=== PATIENT | female | born 1950 | race Hispanic/Latino ===

== ENCOUNTER → 2017-05-14 | Outpatient (CLI) | payer OTHER ==
[~2017-05-14] MED LIST: CEPHALEXIN500 MG PO; FENOFIBRATE145 MG PO; KEFLEX500 MG PO; LEVAQUIN500 MG PO; LISINOPRIL10 MG PO; MELATONIN3 MG PO; NIFEDIPINE PO; OXYBUTYNIN CHLOR5 MG PO; PANTOPRAZOLE SO40 MG PO; TYLENOL WITH C1 EACH PO; Z SULFAMETHOXAZO PO; Z.0.CIPRO500 MG PO; Z.0.COLACE50 MG PO; Z.0.MEVACOR40 MG PO; Z.0.NEXIUM40 MG PO; Z.1.LISINOPRIL-HCT1 PO; Z.1.NITROFURANTOIN10 PO; [UNRECOGNIZED DRUG - OTHER] PO
[2017-05-14 10:56] LABS: BASOPHILS # (AUTO) 0.1 (0.0-0.1); BASOPHILS % 1.1 % (0.0-1.0); EOSINOPHILS # (AUTO) 0.3 (0.0-0.4); EOSINOPHILS % 4.1 % (0.0-6.0); HEMATOCRIT 33.9 % (34.2-44.1); HEMOGLOBIN 11.1 g/dL (12.0-16.0); LYMPHOCYTES # (AUTO) 3.1 (1.0-3.2); MEAN CORPUSCULAR HEMOGLOBIN 29.1 pg (28-32); MEAN CORPUSCULAR HGB CONC 32.7 g/dL (31-35); MONOCYTES # (AUTO) 0.5 (0.2-0.8); MONOCYTES % 5.7 % (4.4-11.3); NEUTROPHILS # (AUTO) 4.3 (2.1-6.9); PLATELET COUNT 465 x10e3/uL (140-360); RED BLOOD COUNT 3.81 x10e6/uL (3.6-5.1)
[2017-05-14 11:12] LABS: ANION GAP 13.8 mmol/L (8-16); CALCIUM 10.2 mg/dL (8.4-10.2); CREATININE, SERUM 1.18 mg/dL (0.57-1.11); POTASSIUM 4.8 mmol/L (3.5-5.1)
--- NOTE | 2017-05-14 11:59 | Diagnostic Imaging Report ---
PROCEDURE: Frontal and lateral views of the chest. COMPARISON: None. INDICATIONS: PREOPERATIVE CHEST XRAY FOR COLONOSCOPY FINDINGS: Lines/tubes: None. Lungs: The lungs are well inflated. Mild bibasilar scarring or atelectasis. There is no evidence of pneumonia or pulmonary edema. Pleura: There is no pleural effusion or pneumothorax. Heart and mediastinum: The heart and the mediastinum are normal. Bones: No acute bony abnormality. IMPRESSION: No acute cardiopulmonary disease. Dictated by: Keyon Montague M.D. on 05/14/2017 at 12:09 Electronically approved by: Keyon Montague M.D. on 05/14/2017 at 12:09
== END ==
LOC: DX 11:15 → EDSTATUS 06-08 11:00
PROVIDERS: ATTEND Surgery
DX: Z01.818 Encounter for other preprocedural examination (principal); K57.92 Diverticulitis of intestine, part unspecified, without perforation or abscess without bleeding; Z53.8 Procedure and treatment not carried out for other reasons
CPT/HCPCS: 36415; 71046; 80048; 85025; 93005

== ENCOUNTER 2017-06-19 13:40 | Inpatient (IN) | payer MEDICARE, OTHER ==
[~2017-06-19] VITALS: Ht 162.6 cm; Wt 67.6 kg
[~2017-06-19 13:40] MED LIST changes: -KEFLEX500 MG PO
--- OUTSIDE RECORDS SUMMARY | 2017-06-19 13:43 | XMS REPORT | Continuity of Care Document ---
Author Author [facility] Organization [facility] Address [address] [place] [address] Phone Unavailable Care Team Providers Care Computer Applications Instructor Name Role Phone VALENTIN SELF MD PCP Insurance Providers Guarantor Jeanie Carty Address [address] [place] [address] Email Payer [employer] Policy Number [id number] Subscriber's Name Jeanie Carty Relationship 21 Unknown Group Number [id number] Group Name [facility] Effective Date 15 Advance Directives Directive Response Recorded Date/Time Does the patient have an advance directive? Yes 06/08/17 12:15am If yes, is advance directive on file with [facility]? No 06/08/17 12:15am If not on file with [facility] will patient provide a copy? Yes 06/08/17 12:15am Do you have a Directive to Physician? No 06/07/17 8:24pm Do you have a Medical Power of Supervisor [employer]? No 02/25/18 8:24pm Do you have an out of hospital Do Not Resuscitate Order? No 06/07/17 8:24pm Do you have any special needs we should be aware of? No 06/07/17 8:24pm Do you have a support person here with you today? Yes 06/07/17 8:24pm Did patient receive Notice of Privacy Practices? Yes 06/07/17 8:24pm Did patient receive patient rights and responsibilities? Yes 06/07/17 8:24pm Problems Medical Problem Onset Date Status Elevated lipase Unknown Mild dehydration Unknown Vomiting Unknown Medications Current Home Medications Medication Dose Units Route Directions Days Qty Instructions Start Date Acetaminophen With Codeine (Tylenol With Codeine #3 Tablet) 1 Each Tablet 300 Mg Oral Every 4 Hours as needed for Pain Fenofibrate Nanocrystallized (Fenofibrate) 145 Mg Tablet 145 Mg Oral Daily Levofloxacin (Levaquin) 500 Mg Tablet 500 Mg Oral Daily Lisinopril 10 Mg Tablet 20 Mg Oral Daily 30 Tab Melatonin 3 Mg Tablet 1.5 Mg Oral Bedtime Nifedipine (Adalat Cc) 30 Mg Tablet.sa 1 Tab Oral Daily Oxybutynin Chloride 5 Mg Tablet 10 Mg Oral Daily 30 Tab Pantoprazole Sodium (Protonix) 40 Mg Tablet. 40 Mg Oral Past Home Medications Medication Directions Ordered Status Acetaminophen With Codeine (Tylenol With Codeine #3 Tablet) 1 Each Tablet, 300 Mg Oral Every 4 Hours as needed for Pain Discontinued Cephalexin 500 Mg Capsule, 500 Mg Oral Four Times Daily Discontinued Ciprofloxacin Hcl (Cipro) 500 Mg Tablet, 1 Tab Oral Daily Discontinued Docusate Sodium (Colace) 50 Mg Capsule, 1 Tab Oral Daily Discontinued Esomeprazole Mag Trihydrate (Nexium) 40 Mg Capsule., 1 Tab Oral Daily Discontinued Lovastatin (Mevacor) 40 Mg Tablet, 1 Tab Oral Daily Discontinued Nitrofurantoin Macrocrystal (Nitrofurantoin) 100 Mg Capsule, 1 Tab Oral Daily Discontinued Phenazopyridine Hcl (Pyridium) 100 Mg Tablet, 1 Tab Oral Daily Discontinued Sulfamethoxazole/Trimethoprim (Sulfamethoxazole-Tmp Ds Tablet) 1 Each Tablet, 1 Tab Oral Daily Discontinued Social History Social History Problem Response Recorded Date/Time Onset Date Status Hx Psychiatric Problems No 06/08/2017 12:15am Not Applicable Not Applicable Hx Eating Disorder No 11/14/2011 1:09pm Not Applicable Not Applicable Hx Substance Use Disorder No 11/14/2011 1:09pm Not Applicable Not Applicable Hx Depression No 11/14/2011 1:09pm Not Applicable Not Applicable Hx Alcohol Use No 11/14/2011 1:09pm Not Applicable Not Applicable Hx Substance Use Treatment No 11/14/2011 1:09pm Not Applicable Not Applicable Hx Physical Abuse No 11/14/2011 1:09pm Not Applicable Not Applicable Smoking Status Start Date Stop Date Never Smoker Hospital Discharge Instructions No hospital discharge instruction information available. Plan of Care Discharge Date 06/16/17 1:38pm Disposition HOME HEALTH SERVICE Instructions/Education Provided Abdominal Pain - Adult Prescriptions See Medication Section Additional Instructions/Education REGULAR DIET OOB TYLENOL#3/LEVAQUIN F/U NEXT WEEK. Functional Status Query Response Date Recorded FUNCTIONAL STATUS . June 09, 2017 2:39pm Assistive Devices None June 08, 2017 12:15am Ambulation Ability Independent June 08, 2017 12:15am Toileting Ability Independent June 16, 2017 9:54am Allergies, Adverse Reactions, Alerts No known allergies. Immunizations No immunization information available. Vital Signs Acute Vital Signs Vital Response Date/Time Temperature (Fahrenheit) 98.4 degrees F (97.6 - 99.5) 06/16/2017 11:45am Pulse Pulse Rate (adult) 81 bpm (60 - 90) 06/16/2017 11:45am Respiratory Rate 20 bpm (12 - 24) 06/16/2017 11:45am Blood Pressure 116/57 mm Hg 06/16/2017 11:45am Height 5 ft 4 in 06/07/2017 8:27pm Weight 149 lb 06/09/2017 5:51am Body Mass Index 25.6 kg/m^2 06/09/2017 5:51am Results Laboratory Results Test Name Result Units Flags Reference Collection Date/Time Result Date/ Time Comments White Blood Count 7.41 x10e3/uL 4.8-10.8 06/15/2017 6:55am 06/15/2017 7 :36am Red Blood Count 3.31 x10e6/uL L 3.6-5.1 06/15/2017 6:55am 06/15/2017 7: 36am Hemoglobin 9.8 g/dL L 12.0-16.0 06/15/2017 6:55am 06/15/2017 7:36am Hematocrit 28.4 % L 34.2-44.1 06/15/2017 6:55am 06/15/2017 7:36am Mean Corpuscular Volume 85.8 fL 81-99 06/15/2017 6:55am 06/15/2017 7: 36am Mean Corpuscular Hemoglobin 29.6 pg 28-32 06/15/2017 6:55am 06/15/2017 7:36am Mean Corpuscular Hemoglobin Concent 34.5 g/dL 31-35 06/15/2017 6:55am 06/15/2017 7:36am Red Cell Distribution Width 13.8 % 11.7-14.4 06/15/2017 6:55am 2017 7:36am Platelet Count 478 x10e3/uL H 140-360 06/15/2017 6:55am 06/15/2017 7: 36am Neutrophils (%) (Auto) 64.0 % 38.7-80.0 06/15/2017 6:55am 06/15/2017 7: 36am Lymphocytes (%) (Auto) 22.7 % 18.0-39.1 06/15/2017 6:55am 06/15/2017 7: 36am Monocytes (%) (Auto) 10.1 % 4.4-11.3 06/15/2017 6:55am 06/15/2017 7: 36am Eosinophils (%) (Auto) 1.9 % 0.0-6.0 06/15/2017 6:55am 06/15/2017 7: 36am Basophils (%) (Auto) 0.8 % 0.0-1.0 06/15/2017 6:55am 06/15/2017 7:36am IM GRANULOCYTES % 0.5 % 0.0-1.0 06/15/2017 6:55am 06/15/2017 7:36am Neutrophils # (Auto) 4.7 2.1-6.9 06/15/2017 6:55am 06/15/2017 7:36am Lymphocytes # (Auto) 1.7 1.0-3.2 06/15/2017 6:55am 06/15/2017 7:36am Monocytes # (Auto) 0.8 0.2-0.8 06/15/2017 6:55am 06/15/2017 7:36am Eosinophils # (Auto) 0.1 0.0-0.4 06/15/2017 6:55am 06/15/2017 7:36am Basophils # (Auto) 0.1 0.0-0.1 06/15/2017 6:55am 06/15/2017 7:36am Absolute Immature Granulocyte (auto 0.04 x10e3/uL 0-0.1 06/15/2017 6: 55am 06/15/2017 7:36am Urine Color YELLOW YELLOW 06/07/2017 9:20pm 06/07/2017 10:04pm Urine Clarity CLEAR CLEAR 06/07/2017 9:20pm 06/07/2017 10:04pm Urine Specific [place] 1.015 1.010-1.025 06/07/2017 9:20pm 2017 10:04pm Urine pH 7 5 - 7 06/07/2017 9:20pm 06/07/2017 10:04pm Urine Leukocyte Esterase NEGATIVE NEGATIVE 06/07/2017 9:20pm 2017 10:04pm Urine Nitrite NEGATIVE NEGATIVE 06/07/2017 9:20pm 06/07/2017 10:04pm Urine Protein 2+ H NEGATIVE 06/07/2017 9:20pm 06/07/2017 10:04pm Urine Glucose (UA) NEGATIVE NEGATIVE 06/07/2017 9:20pm 06/07/2017 10: 04pm Urine Ketones NEGATIVE NEGATIVE 06/07/2017 9:20pm 06/07/2017 10:04pm Urine Urobilinogen 0.2 mg/dL 0.2 - 1 06/07/2017 9:20pm 06/07/2017 10: 04pm Urine Bilirubin NEGATIVE NEGATIVE 06/07/2017 9:20pm 06/07/2017 10: 04pm Urine Blood NEGATIVE NEGATIVE 06/07/2017 9:20pm 06/07/2017 10:04pm Urine WBC 0-5 /HPF 0-5 06/07/2017 9:20pm 06/07/2017 10:31pm Urine RBC 0-5 /HPF 0-5 06/07/2017 9:20pm 06/07/2017 10:31pm Urine Bacteria FEW /HPF NONE 06/07/2017 9:20pm 06/07/2017 10:31pm Urine Epithelial Cells FEW /LPF NONE 06/07/2017 9:20pm 06/07/2017 10: 31pm Urine Hyaline Casts 0-1 0-1 06/07/2017 9:20pm 06/07/2017 10:31pm Urine Mucus FEW H RARE 06/07/2017 9:20pm 06/07/2017 10:31pm Sodium Level 135 mmol/L L 136-145 06/15/2017 6:55am 06/15/2017 7:46am Potassium Level 3.1 mmol/L L 3.5-5.1 06/15/2017 6:55am 06/15/2017 7: 46am Chloride Level 99 mmol/L 98-107 06/15/2017 6:55am 06/15/2017 7:46am Carbon Dioxide Level 26 mmol/L 22-29 06/15/2017 6:55am 06/15/2017 7: 46am Anion Gap 13.1 mmol/L 8-16 06/15/2017 6:55am 06/15/2017 7:46am Blood Urea Nitrogen 7 mg/dL 7-06/15/2017 6:55am 06/15/2017 7:46am Creatinine 0.80 mg/dL 0.57-1.11 06/15/2017 6:55am 06/15/2017 7:46am BUN/Creatinine Ratio 9 6-06/15/2017 6:55am 06/15/2017 7:46am Estimat Glomerular Filtration Rate > 60 ML/MIN 60- 06/15/2017 6:55am 7:46am Ranges were taken from the National Kidney Disease Education Program and the National Kidney Foundation literature. Reference ranges: 60 or greater: Normal 16-59 (for 3 consecutive months): Chronic kidney disease 15 or less: Kidney failure Glucose Level 94 mg/dL 74-118 06/15/2017 6:55am 06/15/2017 7:46am Calcium Level 9.2 mg/dL 8.4-10.2 06/15/2017 6:55am 06/15/2017 7:46am Total Bilirubin 0.3 mg/dL 0.2-1.2 06/15/2017 6:55am 06/15/2017 7:46am Aspartate Amino Transf (AST/SGOT) 35 IU/L H 5-34 06/15/2017 6:55am 06/15 7:46am Alanine Aminotransferase (ALT/SGPT) 51 IU/L 0-55 06/15/2017 6:55am 08/2017 7:46am Total Protein 7.1 g/dL 6.5-8.1 06/15/2017 6:55am 06/15/2017 7:46am Albumin 2.9 g/dL L 3.5-5.0 06/15/2017 6:55am 06/15/2017 7:46am Globulin 4.2 g/dL H 2.3-3.5 06/15/2017 6:55am 06/15/2017 7:46am Albumin/Globulin Ratio 0.7 L 0.8-2.0 06/15/2017 6:55am 06/15/2017 7: 46am Alkaline Phosphatase 47 IU/L 40-150 06/15/2017 6:55am 06/15/2017 7: 46am Amylase Level 96 U/L 25-125 06/08/2017 6:45am 06/08/2017 7:39am Lipase 107 U/L H 8-78 06/08/2017 6:45am 06/08/2017 7:39am Procedures Procedure Status Date Provider(s) Exploratory laparotomy Completed 06/08/17 MARICRUZ RUIZ MD Cystoscopy with retrograde pyelography Completed 06/12/17 RALPH JENKINS MD Encounters Encounter Location Arrival/Admit Date Discharge/Depart Date Attending Provider Discharged Inpatient [facility] 06/09/17 11:13am 1:38pm MARICRUZ RUIZ MD
[2017-06-19] MEDS ORDERED: SODIUM CHLORIDE 0.9% 1000ML 1,000 ML IV STA (14:19)
[2017-06-19] MEDS ORDERED: SODIUM CHLORIDE 0.9% 1000ML 500 ML IV STA (14:19)
[2017-06-19] MEDS ORDERED: METRONIDAZOLE 500MG/NS 100ML 100 ML IV STA (14:19)
[2017-06-19] MEDS ORDERED: MORPHINE SULFATE 2 MG/ML SYR IV STA (14:19)
[2017-06-19] MEDS ORDERED: CIPROFLOXACIN 400 MG/D5W 200ML 200 ML IV ONE (14:30)
[2017-06-19] MEDS ORDERED: PANTOPRAZOLE 40 MG 10ML VIAL IV ONE (14:30)
[2017-06-19] MEDS ORDERED: MORPHINE SULFATE 2 MG/ML SYR IV PRN (14:30)
[2017-06-19] MEDS ORDERED: ONDANSETRON HCL INJ 2 MG/ML VIAL IV ONE (14:30)
[2017-06-19 14:31] LABS: BASOPHILS # (AUTO) 0.1 (0.0-0.1); BASOPHILS % 0.3 % (0.0-1.0); EOSINOPHILS # (AUTO) 0.1 (0.0-0.4); EOSINOPHILS % 0.3 % (0.0-6.0); HEMATOCRIT 34.9 % (34.2-44.1); HEMOGLOBIN 11.5 g/dL (12.0-16.0); MEAN CORPUSCULAR VOLUME 87.9 fL (81-99); MONOCYTES # (AUTO) 0.9 (0.2-0.8); MONOCYTES % 3.9 % (4.4-11.3); NEUTROPHILS # (AUTO) 18.8 (2.1-6.9); PLATELET COUNT 683 x10e3/uL (140-360); RED BLOOD COUNT 3.97 x10e6/uL (3.6-5.1); RED CELL DISTRIBUTION WIDTH 14.2 % (11.7-14.4)
[2017-06-19 14:36] LABS: INR 1.16; PROTHROMBIN TIME 13.9 seconds (11.9-14.5)
[2017-06-19 14:37] LABS: PARTIAL THROMBOPLASTIN TIME 25.1 seconds (23.8-35.5)
--- NOTE | 2017-06-19 14:40 | Diagnostic Imaging Report ---
PROCEDURE: A single AP view of the chest. COMPARISON: 05/14/17 INDICATIONS: NAUSEA, VOMITING FINDINGS: Lines/tubes: None. Lungs: The lungs are well inflated and clear. There is no evidence of pneumonia or pulmonary edema. Pleura: There is no pleural effusion or pneumothorax. Heart and mediastinum: The heart and the mediastinum are unremarkable. Mildly tortuous aorta. Bones: No acute bony abnormality. IMPRESSION: 1. No acute cardiopulmonary disease. Dictated by: Sharif Kenyon M.D. on 06/19/2017 at 14:40 Electronically approved by: Sharif Kenyon M.D. on 06/19/2017 at 14:40
[2017-06-19 14:45] LABS: ALBUMIN 3.9 g/dL (3.5-5.0); ALBUMIN/GLOBULIN RATIO 0.8 (0.8-2.0); ANION GAP 21.2 mmol/L (8-16); CALCIUM 10.3 mg/dL (8.4-10.2); CREATININE, SERUM 1.61 mg/dL (0.57-1.11); MAGNESIUM 1.8 MG/DL (1.3-2.1); POTASSIUM 3.2 mmol/L (3.5-5.1)
[2017-06-19 15:05] LABS: CREATINE KINASE MB 0.9 ng/mL (0-5.0); THYROID STIMULATING HORMONE 1.181 uIU/mL (0.350-4.940)
[2017-06-19] MEDS ORDERED: POTASSIUM CHLORIDE 20MEQ/100ML 100 ML IV ONE (15:30)
[2017-06-19] MEDS ORDERED: DIATRIZOATE MEGL/DIATRIZOA SOD 30 ML BTL PO ONE (15:40)
[2017-06-19 16:55] VITALS: BP 139/64
[2017-06-19 17:30] VITALS: BP 139/64
[2017-06-19] MEDS: SODIUM CHLORIDE 0.9% 1000ML 1,000 ML IV SCH ×2 (17:54→21:07)
[2017-06-19 17:59] LABS: BILIRUBIN,URINE 1+ (NEGATIVE); CLARITY,URINE SL CLOUDY (CLEAR); COLOR,URINE STRAW (YELLOW); KETONES,URINE NEGATIVE (NEGATIVE); LEUKOCYTE ESTERASE ,URINE 2+ (NEGATIVE); NITRITE,URINE NEGATIVE (NEGATIVE); PROTEIN,URINE DIPSTICK 1+ (NEGATIVE); URINE UROBILINOGEN 0.2 mg/dL (0.2 - 1)
[2017-06-19] MEDS ORDERED: METRONIDAZOLE 500MG/NS 100ML IV SCH (18:00)
--- NOTE | 2017-06-19 18:01 | History and Physical ---
HISTORY OF PRESENT ILLNESS: Ms. Carty is an elderly, 66-year-old woman who presented to the emergency room today with a complaint of nausea, vomiting and diarrhea. The patient had been home for 2 days since she had surgery here at [facility], and then discharged. The exact date of surgery is not very clear. She was discharged on the after she had a partial left hemicolectomy and also the removal of a left ureteral stent. She had previously been hospitalized at [facility] in February 2017 for diverticulitis and had medical management and the ureteral stent placement. PAST MEDICAL HISTORY: Significant for recurring diverticular problems, chronic anemia, depression. PAST SURGICAL HISTORY: She has had previous cholecystectomy and partial hysterectomy. HOME MEDICATIONS: Include fenofibrate 145 mg daily. She reports she took one pill of Levaquin but could not take others because of nausea and vomiting. Lisinopril 20 mg daily. Nifedipine CC 30 mg daily and Protonix 40 mg daily. PERSONAL/SOCIAL HISTORY: She does not smoke or drink. She lives with her sister who reports that her sister tries to take care of her. PHYSICAL EXAMINATION: GENERAL: A woman who looks much older than her stated age. HEENT: Unremarkable. NECK: No jugular venous distention no bruits. CARDIOVASCULAR: Heart sounds S1 and S2 are equal. No murmurs, gallops or rubs. RESPIRATORY: Clear. ABDOMEN: Protuberant with hypoactive bowel sounds. There is a healing lower midline incision with ron in place. It is nontender. EXTREMITIES: No cyanosis clubbing or edema. PERTINENT LABORATORY STUDIES: Show white count 21.8, hemoglobin 11.5, hematocrit 34.9, platelets 683,000. Chemistries show sodium 141, potassium 3.2, chloride 100, bicarb 23, BUN 35 and creatinine 1.6. Her ALT is mildly elevated at 64 with the upper limit being 55. AST is borderline at 35 with upper limit normal being 34. There is no urinalysis available yet. CAT scan the abdomen was ordered but not yet performed. ASSESSMENT: 1. Gastroenteritis with nausea, vomiting and diarrhea. 2. Recent partial colectomy for diverticulitis. 3. Recent ureteral stent removal. 4. Hypokalemia. 5. Mild renal insufficiency. PLAN: Will hydrate the patient and give broad-spectrum antibiotics and provide medications for nausea, vomiting and diarrhea. She told me she "does not want to have another night like she had last night". Further management based on clinical course. Job#: [id number] cc:VALENTIN SELF MD cc:MARICRUZ RUIZ MD cc:RALPH JENKINS MD
[2017-06-19 18:11] VITALS: BP 139/64
[2017-06-19 18:11] LABS: AMORPHOUS SEDIMENT,URINE MODERATE (FEW); BACTERIA,URINE MODERATE /HPF; EPITHELIAL CELLS,URINE MANY /LPF; RBC,URINE 21-50 /HPF (0-5)
--- NOTE | 2017-06-19 18:54 | Diagnostic Imaging Report ---
EXAM: CT Abdomen and Pelvis WITHOUT contrast INDICATION: \S\VOMIT, DIARRHEA COMPARISON: Abdominal x-ray dated 06/07/2017 TECHNIQUE: Abdomen and pelvis were scanned utilizing a multidetector helical scanner from the lung base to the pubic symphysis without administration of IV contrast. Absence of intravenous contrast decreases sensitivity for detection of focal lesions and vascular pathology. Coronal and sagittal reformations were obtained. Routine protocol was performed. IV CONTRAST: None ORAL CONTRAST: Water COMPLICATIONS: None RADIATION DOSE: Total DLP: 297.34 mGy*cm Estimated effective dose: (DLP x 0.015 x size factor) mSv CTDIvol has been reviewed. It is below the limits set by the Radiation Protocol Committee (RPC). FINDINGS: LINES and TUBES: None. LOWER THORAX: Unremarkable HEPATOBILIARY: Hepatic steatosis. Otherwise, unenhanced liver is unremarkable. No biliary ductal dilation. GALLBLADDER: Absent. SPLEEN: No splenomegaly. PANCREAS: No focal masses or ductal dilatation. ADRENALS: No adrenal nodules KIDNEYS/URETERS: No hydronephrosis. No stones. GI TRACT: Rectosigmoid anastomosis is intact. Colonic diverticulosis. No abnormal distention, wall thickening, or evidence of bowel obstruction. Appendix is not visualized. PELVIC ORGANS/BLADDER: Hysterectomy. Bladder is under distended, limiting evaluation. LYMPH NODES: No lymphadenopathy. VESSELS: Limited evaluation without intravenous contrast. No abdominal aortic aneurysm. PERITONEUM / RETROPERITONEUM: No free air or fluid. BONES: Degenerative changes of lower lumbar spine. SOFT TISSUES: Midline abdominal surgical scar and skin ron in place. IMPRESSION: 1. Limited study without contrast. 2. Postsurgical changes of colonic resection with rectosigmoid anastomosis. 3. No definite evidence of acute inflammatory process in the abdomen/pelvis. 4. Diverticulosis of the remainder of the colon without evidence of diverticulitis. 5. Hepatic steatosis. Signed by: Dr. Sharif Kenyon MD on 06/19/2017 6:50 PM
[2017-06-19] MEDS: METRONIDAZOLE 500MG/NS 100ML 100 ML IV SCH (19:47)
[2017-06-19 20:00] VITALS: BP 115/55
[2017-06-19 20:28] VITALS: BP 115/55
[2017-06-19] MEDS: CIPROFLOXACIN 400 MG/D5W 200ML 200 ML IV SCH (21:33)
[2017-06-20] VITALS (7 sets, daily range): BP systolic 102–133; BP diastolic 51–60
[2017-06-20] MEDS: METRONIDAZOLE 500MG/NS 100ML 100 ML IV SCH ×4 (01:04→19:44)
[2017-06-20] MEDS: SODIUM CHLORIDE 0.9% 1000ML 1,000 ML IV SCH ×3 (04:45→21:05)
[2017-06-20 06:08] LABS: BASOPHILS # (AUTO) 0.1 (0.0-0.1); BASOPHILS % 0.4 % (0.0-1.0); EOSINOPHILS # (AUTO) 0.3 (0.0-0.4); EOSINOPHILS % 2.5 % (0.0-6.0); HEMATOCRIT 26.7 % (34.2-44.1); HEMOGLOBIN 8.7 g/dL (12.0-16.0); LYMPHOCYTES # (AUTO) 2.4 (1.0-3.2); LYMPHOCYTES % 20.8 % (18.0-39.1); MEAN CORPUSCULAR HEMOGLOBIN 29.4 pg (28-32); MEAN CORPUSCULAR HGB CONC 32.6 g/dL (31-35); MEAN CORPUSCULAR VOLUME 90.2 fL (81-99); MONOCYTES # (AUTO) 0.9 (0.2-0.8); MONOCYTES % 7.9 % (4.4-11.3); NEUTROPHILS # (AUTO) 7.7 (2.1-6.9); PLATELET COUNT 523 x10e3/uL (140-360); RED BLOOD COUNT 2.96 x10e6/uL (3.6-5.1); RED CELL DISTRIBUTION WIDTH 14.4 % (11.7-14.4)
[2017-06-20 06:34] LABS: ALBUMIN/GLOBULIN RATIO 0.8 (0.8-2.0); ANION GAP 14.5 mmol/L (8-16); CALCIUM 8.6 mg/dL (8.4-10.2); CREATININE, SERUM 1.01 mg/dL (0.57-1.11); POTASSIUM 3.5 mmol/L (3.5-5.1)
[2017-06-20] MEDS: CIPROFLOXACIN 400 MG/D5W 200ML 200 ML IV SCH ×2 (09:12→21:05)
[2017-06-20] MEDS: MELATONIN 3 MG TAB PO SCH (21:05)
[2017-06-21] VITALS (8 sets, daily range): BP systolic 109–124; BP diastolic 51–59
[2017-06-21] MEDS: METRONIDAZOLE 500MG/NS 100ML 100 ML IV SCH ×4 (01:27→20:25)
[2017-06-21] MEDS: SODIUM CHLORIDE 0.9% 1000ML 1,000 ML IV SCH ×3 (03:20→16:15)
[2017-06-21] MEDS: PANTOPRAZOLE SOD 40 MG TABEC PO SCH (08:02)
[2017-06-21] MEDS: LISINOPRIL 20 MG TAB PO SCH (08:17)
[2017-06-21] MEDS: FENOFIBRATE 145 MG TAB PO SCH (08:17)
[2017-06-21] MEDS: NIFEDIPINE CR 30 MG TAB PO SCH (08:25)
[2017-06-21] MEDS: CIPROFLOXACIN 400 MG/D5W 200ML 200 ML IV SCH (08:25)
[2017-06-21] MEDS ORDERED: NIFEDIPINE CR 30 MG TAB PO SCH (09:00)
[2017-06-21] MEDS ORDERED: CEFTRIAXONE SOD 1 GM VIAL IV SCH (16:00)
[2017-06-21] MEDS: CEFTRIAXONE SOD 1 GM VIAL IV SCH (16:43)
[2017-06-21] MEDS: MELATONIN 3 MG TAB PO SCH (20:25)
[2017-06-22 00:03] VITALS: BP 116/56
[2017-06-22] MEDS: ONDANSETRON HCL INJ 2 MG/ML VIAL IV PRN (02:34)
[2017-06-22] MEDS: METRONIDAZOLE 500MG/NS 100ML 100 ML IV SCH ×4 (03:00→21:35)
[2017-06-22 04:00] VITALS: BP 118/76
[2017-06-22 06:19] LABS: BASOPHILS % 0.4 % (0.0-1.0); EOSINOPHILS # (AUTO) 0.2 (0.0-0.4); EOSINOPHILS % 2.7 % (0.0-6.0); HEMATOCRIT 26.3 % (34.2-44.1); HEMOGLOBIN 8.7 g/dL (12.0-16.0); LYMPHOCYTES # (AUTO) 2.6 (1.0-3.2); LYMPHOCYTES % 29.1 % (18.0-39.1); MEAN CORPUSCULAR HEMOGLOBIN 29.2 pg (28-32); MEAN CORPUSCULAR HGB CONC 33.1 g/dL (31-35); MEAN CORPUSCULAR VOLUME 88.3 fL (81-99); MONOCYTES # (AUTO) 0.8 (0.2-0.8); MONOCYTES % 8.4 % (4.4-11.3); NEUTROPHILS # (AUTO) 5.3 (2.1-6.9); NEUTROPHILS % 59.1 % (38.7-80.0); PLATELET COUNT 497 x10e3/uL (140-360); RED BLOOD COUNT 2.98 x10e6/uL (3.6-5.1); RED CELL DISTRIBUTION WIDTH 14.3 % (11.7-14.4)
[2017-06-22 06:38] LABS: ANION GAP 12.1 mmol/L (8-16); BLOOD UREA NITROGEN 7 mg/dL (7-26); BUN/CREATININE RATIO 10 (6-25); CALCIUM 8.5 mg/dL (8.4-10.2); CARBON DIOXIDE 20 mmol/L (22-29); CHLORIDE 114 mmol/L (98-107); CREATININE, SERUM 0.69 mg/dL (0.57-1.11); EST GLOMERULAR FILTRATION RATE > 60 ML/MIN (60-); GLUCOSE 92 mg/dL (74-118); POTASSIUM 3.1 mmol/L (3.5-5.1); SODIUM 143 mmol/L (136-145)
[2017-06-22 08:01] VITALS: BP 117/57
[2017-06-22] MEDS: NIFEDIPINE CR 30 MG TAB PO SCH (09:06)
[2017-06-22] MEDS: FENOFIBRATE 145 MG TAB PO SCH (09:06)
[2017-06-22] MEDS: PANTOPRAZOLE SOD 40 MG TABEC PO SCH (09:06)
[2017-06-22] MEDS: LISINOPRIL 20 MG TAB PO SCH (09:06)
[2017-06-22 09:51] LABS: BILIRUBIN,URINE NEGATIVE (NEGATIVE); KETONES,URINE NEGATIVE (NEGATIVE); LEUKOCYTE ESTERASE ,URINE 2+ (NEGATIVE); NITRITE,URINE NEGATIVE (NEGATIVE); PROTEIN,URINE DIPSTICK NEGATIVE (NEGATIVE); URINE UROBILINOGEN 0.2 mg/dL (0.2 - 1)
[2017-06-22 09:52] LABS: CLARITY,URINE SL CLOUDY (CLEAR); COLOR,URINE YELLOW (YELLOW)
[2017-06-22 10:10] LABS: EPITHELIAL CELLS,URINE FEW /LPF; RBC,URINE 0-5 /HPF (0-5)
[2017-06-22 11:55] VITALS: BP 110/63
[2017-06-22] MEDS ORDERED: POTASSIUM CHLORIDE 20 MEQ TAB CR PO NR (12:45)
[2017-06-22] MEDS: SODIUM CHLORIDE 0.9% 1000ML 1,000 ML IV SCH ×2 (13:22→14:25)
[2017-06-22 16:28] VITALS: BP 138/65
[2017-06-22] MEDS: CEFTRIAXONE SOD 1 GM VIAL IV SCH (16:30)
[2017-06-22 20:13] VITALS: BP 128/68
[2017-06-22] MEDS: MELATONIN 3 MG TAB PO SCH (21:35)
[2017-06-23] VITALS: BP 103/58
[2017-06-23] MEDS: METRONIDAZOLE 500MG/NS 100ML 100 ML IV SCH ×4 (02:30→21:30)
[2017-06-23] MEDS: SODIUM CHLORIDE 0.9% 1000ML 1,000 ML IV SCH ×3 (03:00→15:10)
[2017-06-23] MEDS: ONDANSETRON HCL INJ 2 MG/ML VIAL IV PRN (07:30)
[2017-06-23 07:45] VITALS: BP 143/79
[2017-06-23] MEDS: PANTOPRAZOLE SOD 40 MG TABEC PO SCH (08:47)
[2017-06-23] MEDS: FENOFIBRATE 145 MG TAB PO SCH (08:48)
[2017-06-23] MEDS: NIFEDIPINE CR 30 MG TAB PO SCH (08:48)
[2017-06-23] MEDS: LISINOPRIL 20 MG TAB PO SCH (08:48)
[2017-06-23 09:52] VITALS: BP 143/79
[2017-06-23 13:31] VITALS: BP 121/63
--- NOTE | 2017-06-23 15:15 | Consultation ---
DATE OF CONSULTATION: June 23, 2017 REASON FOR CONSULTATION: UTI. Thank you so much for asking me to see this patient. HISTORY OF PRESENT ILLNESS: This patient is a very pleasant 66-year-old female. In February, she had abdominal pain. She was diagnosed with diverticulitis. It was recommended for her to have surgery at that time. It was found she had an abscess. She did see a urologist at that time. She is not so sure what happened, but she had a stent placement, and she had the stent for 3 months. She wanted to go home and seek a 2nd opinion. She went and saw Dr. Mac. He did surgery on her probably on the . She was here from June 08 until June 16, then she was discharged home. Her wound is healing. She is doing good. But she started to have some abdominal pain, nausea, vomiting and diarrhea. Patient came here. Her white count was elevated. Urine culture was obtained. Patient did well in general. However, her urine cultures came back positive, so infectious disease was consulted. The patient tells me the stent was removed. She is currently lying in bed comfortably, up walking in the room. She has no complaints whatsoever. She denies any urgency or frequency, skin, diarrhea or abdominal pain. PAST MEDICAL HISTORY: Diverticular disease, chronic anemia, depression. PAST SURGICAL HISTORY: Cholecystectomy, partial hysterectomy, and recently surgery for partial colectomy apparently. ALLERGIES: NKA. SOCIAL HISTORY: There is no smoking, drug abuse or alcohol abuse. FAMILY HISTORY: Unremarkable. REVIEW OF SYSTEMS: At present time as mentioned above. HEENT: There is no headache, visual change or hearing change. GI: There is no nausea, no vomiting, no diarrhea. CARDIAC: There is no arrhythmia. NEURO: No seizure activity. SKIN: There are no other rashes. JOINTS: No edema or erythema. The 14 points were reviewed with the patient and were all negative. LABORATORY DATA: Reviewed. When she first came to the hospital, she did have a leukocytosis. White count was 21.8. It came down to 9.4. Hemoglobin 8.7. Sodium 141, potassium 3.2. Serology: C. diff has been negative. Her urine culture showed E. coli which was resistant only to ampicillin. PHYSICAL EXAMINATION GENERAL: She is currently alert and oriented, does not seem to be in acute distress. VITALS: Stable, currently afebrile. HEENT: She is not icteric. Normocephalic. NECK: Supple. No JVD. No lymphadenopathy. No thyromegaly. CHEST: Clear bilaterally. COR: S1 and S2. No murmur. ABDOMEN: Soft . Bowel sounds present. No tenderness. The wound looks really good. IMPRESSION 1. Urinary tract infection. We will follow it. She can be discharged home with Keflex 500 mg p.o. t.i.d. to finish 14 days. 2. History of diverticulitis with a diverticular abscess, stable. 3. Gastroenteritis maybe on admission, resolved. 4. Hypertension. 5. Hyperlipidemia. Thank you for asking me to see this patient. Job#: [id number]
[2017-06-23 16:11] VITALS: BP 125/81
[2017-06-23 20:00] VITALS: BP 125/71
[2017-06-23] MEDS: MELATONIN 3 MG TAB PO SCH (21:30)
[2017-06-23] MEDS: CEPHALEXIN 500 MG CAP PO SCH (21:35)
[2017-06-24] VITALS: BP 114/55
[2017-06-24] MEDS: SODIUM CHLORIDE 0.9% 1000ML 1,000 ML IV SCH ×2 (01:35→08:43)
[2017-06-24] MEDS: METRONIDAZOLE 500MG/NS 100ML 100 ML IV SCH ×2 (02:00→08:00)
[2017-06-24 04:00] VITALS: BP 121/58
[2017-06-24] MEDS: ONDANSETRON HCL INJ 2 MG/ML VIAL IV PRN (05:08)
[2017-06-24] MEDS: CEPHALEXIN 500 MG CAP PO SCH (05:17)
[2017-06-24 07:48] VITALS: BP 141/79
[2017-06-24] MEDS: NIFEDIPINE CR 30 MG TAB PO SCH (08:43)
[2017-06-24] MEDS: LISINOPRIL 20 MG TAB PO SCH (08:43)
[2017-06-24] MEDS: FENOFIBRATE 145 MG TAB PO SCH (08:43)
[2017-06-24] MEDS: PANTOPRAZOLE SOD 40 MG TABEC PO SCH (08:43)
[2017-06-24 10:16] VITALS: BP 141/79
[2017-06-24 12:00] VITALS: BP 128/80
[2017-06-24] MEDS ORDERED: KEFLEX500 MG PO ×2 (12:28→12:45)
--- NOTE | 2017-06-24 13:23 | Discharge Summary ---
Ms. Carty is a pleasant 66-year-old woman who had recently been discharged after a partial colectomy for diverticular disease. HOSPITAL COURSE: After being home for a couple of days, she had had problems with nausea, vomiting and diarrhea and returned to the hospital. She was given broad-spectrum antibiotic coverage with Flagyl and ciprofloxacin. Urinalysis and urine culture were obtained. Patient with some hydration was feeling some better the next hospital day, and by the third hospital day, nausea, vomiting, diarrhea had resolved. However, urinalysis reflected 21-50 red blood cells and 6-10 white cells with E. coli with some resistance to antibiotics. Her antibiotics were changed to ceftriaxone and metronidazole. Patient continues to slowly improve, today has no complaint at all. She been seen by Dr. Abdalla, who suggests changing her antibiotics to cephalexin 500 mg t.i.d. for 14 days. She is discharged home at this time to take cephalexin 500 mg t.i.d. for 14 days, and she will continue her previous medications. She will follow up with Dr. Person in 2 weeks. DISCHARGE DIAGNOSES: 1. Gastroenteritis. 2. Urinary tract infection. 3. Recent partial colectomy for diverticulosis. MICHAEL WHITE MD Job#: [id number] cc:MD VINAY SUBRAMANIAN MD NEHEMIA HAMPEL, MD ZAHER SHEBIB, MD
== END 2017-06-24 13:14 | disposition home or self-care (01) | DRG 690 ==
LOC: ER 13:40 → ERHOLD 15:07 → IMCU 15:25 → OBSVTOIN 06-21 16:08 → MED/SURG2 06-22 17:55
PROVIDERS: ADMIT Internal Medicine Cardiovascular Disease; ATTEND Internal Medicine Cardiovascular Disease
DX: N39.0 Urinary tract infection, site not specified (principal); K57.92 Diverticulitis of intestine, part unspecified, without perforation or abscess without bleeding; B96.20 Unspecified Escherichia coli [E. coli] as the cause of diseases classified elsewhere; K52.9 Noninfective gastroenteritis and colitis, unspecified; N28.9 Disorder of kidney and ureter, unspecified; D72.829 Elevated white blood cell count, unspecified; E87.6 Hypokalemia; I10 Essential (primary) hypertension; E78.5 Hyperlipidemia, unspecified; Z90.49 Acquired absence of other specified parts of digestive tract; Z16.39 Resistance to other specified antimicrobial drug; R31.29 Other microscopic hematuria; D64.9 Anemia, unspecified; Z96.0 Presence of urogenital implants
CPT/HCPCS: 36415; 71045; 74176; 80048; 80053; 81001; 82550; 82553; 83690; 83735; 83880; 84443; 84484; 85025; 85610; 85730; 87045; 87086; 87186; 87493; 93005; 99285; G0378; J0696; J2270; J2405; J3480; J7030

== ENCOUNTER → 2020-12-28 | Outpatient (CLI) | payer MEDICARE ==
[~2020-12-28] MED LIST changes: +DIATRIZOATE MEGL/DIATRIZOA SOD 30 ML BTL PO ONE; +IOPAMIDOL 370 MG/ML 200 ML INFUS..BTL INJ ONE; +KEFLEX500 MG PO; +SODIUM CHLORIDE 0.9% 50ML 50 ML ONE
== END ==
LOC: CT 13:15
PROVIDERS: ATTEND Surgery
DX: R10.32 Left lower quadrant pain (principal); Z85.43 Personal history of malignant neoplasm of ovary
CPT/HCPCS: 74177; Q9967

== ENCOUNTER → 2024-08-10 | Outpatient (REF) | payer MEDICARE ==
[~2024-08-10] MED LIST changes: +IOPAMIDOL 370 MG/ML 100 ML INFUS..BTL INJ ONE; -IOPAMIDOL 370 MG/ML 200 ML INFUS..BTL INJ ONE; -SODIUM CHLORIDE 0.9% 50ML 50 ML ONE
[2024-08-10 15:55] LABS: CREATININE, SERUM 0.88 mg/dL (0.57-1.11)
[2024-08-10 16:34] LABS: ALBUMIN 4.2 g/dL (3.5-5.0); ANION GAP 19.4 mmol/L (8-16); BILIRUBIN,TOTAL 0.2 mg/dL (0.2-1.2); CALCIUM 9.5 mg/dL (8.4-10.2); CREATININE, SERUM 0.87 mg/dL (0.57-1.11); POTASSIUM 4.4 mmol/L (3.5-5.1); TOTAL PROTEIN 8.3 g/dL (6.5-8.1)
== END ==
LOC: CT 14:59
PROVIDERS: ATTEND Surgery
DX: K63.89 Other specified diseases of intestine (principal)
CPT/HCPCS: 36415; 74177; 80053; 82378; 82565; 84520; 86304; Q9963; Q9967